=== PATIENT | male | born 1960 | race American Indian/Alaskan Native ===

== ENCOUNTER 2019-05-09 02:08 | Emergency (ER) | payer BC, OTHER ==
--- NOTE | 2019-05-09 09:43 | Emergency Department Report ---
ED General Adult HPI - General Chief complaint: High BP Stated complaint: BLOOD PRESSURE PROBLEM Time Seen by Provider: 05/09/19 09:04 Source: patient Mode of arrival: Ambulatory Limitations: No Limitations - History of Present Illness Initial comments: Patient is 58 years old male with history of hypertension. Patient presented to the ER stating that he has been dizzy since yesterday. Patient stated that symptoms started after he took an oxycodone followed by naproxen. Patient stated that he was frustrated that his job when he decided to take this medication. He stated that he took 1 tablets of oxycodone. 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 He stated [place] [address] [place] [address] [place] and found that his blood pressure is 160/80. Patient stated that he went home he took his lisinopril and he felt better. He stated that he woke up around 1:00 in the morning having the same symptoms again but he does not have a machine to check his blood pressure so he decided to come to the ER. Patient currently denying any chest pain, shortness of breath, abdominal pain, nausea or vomiting. He stated that his dizziness is completely resolved now. Patient also denied any headache, neck pain, weakness numbness or tingling sensation. Patient blood pressure in the ER is 131/78 - Related Data Previous Rx's Medication Instructions Recorded Last Taken Type Naproxen [Naprosyn TAB] 500 mg PO BID #20 tablet 11/12/17 Unknown Rx Allergies Allergy/AdvReac Type Severity Reaction Status Date / Time No Known Allergies Allergy Unverified 11/11/17 22:28 ED Review of Systems ROS: Stated complaint: BLOOD PRESSURE PROBLEM Other details as noted in HPI Comment: All other systems reviewed and negative Constitutional: denies: chills, fever Respiratory: denies: cough, shortness of breath, SOB with exertion, wheezing Cardiovascular: denies: chest pain Gastrointestinal: denies: abdominal pain, nausea, vomiting, diarrhea, constipation, hematemesis, melena, hematochezia Musculoskeletal: denies: back pain Neurological: denies: headache, weakness ED Past Medical Hx - Past Medical History Previous Medical History?: Yes Hx Hypertension: Yes Hx Pulmonary Embolism: Yes - Surgical History Past Surgical History?: No - Social History Smoking Status: Never Smoker - Medications Home Medications: Home Medications Medication Instructions Recorded Confirmed Last Taken Type Naproxen [Naprosyn TAB] 500 mg PO BID #20 tablet 11/12/17 Unknown Rx ED Physical Exam - General Limitations: No Limitations General appearance: alert, in no apparent distress - Head Head exam: Present: atraumatic, normocephalic, normal inspection - Eye Eye exam: Present: normal appearance - ENT ENT exam: Present: normal exam, normal orophraynx, mucous membranes moist - Neck Neck exam: Present: normal inspection, full ROM. Absent: tenderness, meningismus, lymphadenopathy, thyromegaly - Respiratory Respiratory exam: Present: normal lung sounds bilaterally. Absent: respiratory distress, wheezes, rales, rhonchi, stridor, chest wall tenderness, accessory muscle use - Cardiovascular Cardiovascular Exam: Present: regular rate, normal rhythm, normal heart sounds - GI/Abdominal GI/Abdominal exam: Present: soft, normal bowel sounds. Absent: distended, tenderness, guarding, rebound, rigid, organomegaly, mass, bruit, pulsatile mass, hernia - Extremities Exam Extremities exam: Present: normal inspection, full ROM, normal capillary refill. Absent: pedal edema, calf tenderness - Back Exam Back exam: Present: normal inspection, full ROM. Absent: tenderness, CVA tenderness (R), CVA tenderness (L), muscle spasm, paraspinal tenderness, vertebral tenderness - Neurological Exam Neurological exam: Present: alert, oriented X3, CN II-XII intact, normal gait, reflexes normal. Absent: motor sensory deficit - Psychiatric Psychiatric exam: Present: normal mood - Skin Skin exam: Present: warm, intact, normal color ED Course Vital Signs 05/09/19 05/09/19 05/09/19 02:19 06:01 06:31 Temperature 97.8 F Pulse Rate 61 57 L 53 L Respiratory 18 19 17 Rate Blood Pressure 131/77 119/68 108/70 O2 Sat by Pulse 98 96 97 Oximetry 05/09/19 05/09/19 05/09/19 07:01 07:31 08:49 Temperature Pulse Rate 59 L 57 L 59 L Respiratory 17 15 15 Rate Blood Pressure 109/73 110/66 118/73 O2 Sat by Pulse 95 99 97 Oximetry 05/09/19 05/09/19 05/09/19 09:01 09:31 10:01 Temperature Pulse Rate 59 L 56 L 58 L Respiratory 19 18 17 Rate Blood Pressure 118/73 116/68 110/66 O2 Sat by Pulse 97 97 98 Oximetry 05/09/19 05/09/19 05/09/19 10:31 11:01 11:31 Temperature Pulse Rate 58 L 59 L 51 L Respiratory 19 20 18 Rate Blood Pressure 112/74 103/65 103/68 O2 Sat by Pulse 98 97 97 Oximetry ED Medical Decision Making - Lab Data Result diagrams: 05/09/19 09:56 05/09/19 09:56 - EKG Data -: EKG Interpreted by Me EKG shows normal: sinus rhythm Rate: normal - EKG Data Interpretation: no acute changes - Medical Decision Making Patient is 58 years old male with history of hypertension. Patient presented to the ER stating that he has been dizzy since yesterday. Patient stated that symptoms started after he took an oxycodone followed by naproxen. Patient stated that he was frustrated that his job when he decided to take this medication. He stated that he took 1 tablets of oxycodone. 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 He stated that [place] [address] [place] and found that his blood pressure is 160/80. Patient stated that he went home he took his lisinopril and he felt better. He stated that he woke up around 1:00 in the morning having the same symptoms again but he does not have a machine to check his blood pressure so he decided to come to the ER. Patient currently denying any chest pain, shortness of breath, abdominal pain, nausea or vomiting. He stated that his dizziness is completely resolved now. Patient also denied any headache, neck pain, weakness numbness or tingling sensation. Patient blood pressure in the ER is 131/78 Patient remained asymptomatic in the ER. EKG is unremarkable. Labs reviewed and is negative for acute finding. Patient counseled about narcotics abuse and advised to follow-up with his primary care physician in the next 2 to 3 days and to return to the ER if he develop any new symptoms. Critical care attestation.: If time is entered above; I have spent that time in minutes in the direct care of this critically ill patient, excluding procedure time. ED Disposition Clinical Impression: Dizziness, Hypertension Disposition: -01 TO HOME OR SELFCARE Is pt being admited?: No Condition: Stable Instructions: Hypertension (ED), Dizziness (ED) Referrals: PRIMARY CARE,MD [Primary Care Provider] - 3-5 Days
[2019-05-09 10:14] LABS: Hematocrit 43.8 % (35.5-45.6); Mean Corpuscular HGB Conc 34 % (32-34); Mean Corpuscular Volume 95 fl (84-94); Platelet Count 188 K/mm3 (140-440); Red Blood Count 4.61 M/mm3 (3.65-5.03); Red Cell Distribution Width 13.7 % (13.2-15.2)
[2019-05-09 10:37] LABS: Alanine Aminotransferase 28 units/L (7-56); Albumin 4.3 g/dL (3.9-5); BUN/Creatinine Ratio 12; Blood Urea Nitrogen 13 mg/dL (9-20); Calcium 9.2 mg/dL (8.4-10.2); Hemolysis Index 13
[2019-05-09 11:40] LABS: Basophils % (Manual) 0 % (0.0-1.8); Eosinophils % (Manual) 0 % (0.0-4.3); Platelet Estimate Consistent w Auto; Total Cells Counted 100
[2019-05-09 11:54] LABS: Bilirubin,Urine NEG (Negative); Blood,Urine NEG (Negative); Color,Urine Yellow (Yellow); Protein,Urine <15 mg/dL mg/dL (Negative); Urobilinogen,Urine < 2.0 mg/dL (<2.0); WBC,Urine < 1.0 /HPF (0.0-6.0)
[2019-05-09 12:40] VITALS: BP 104/64
== END 2019-05-09 12:43 | disposition home or self-care (01) ==
LOC: ED 02:08
DX: I10 Essential (primary) hypertension (principal); R42 Dizziness and giddiness; Z79.899 Other long term (current) drug therapy
CPT/HCPCS: 36415; 80053; 81001; 84484; 85007; 85025; 93005; 93010; 99283